=== PATIENT | female | born 1970 | race Two or more races ===

== ENCOUNTER 2024-09-22 10:16 | Emergency (ER) | payer OTHER ==
[~2024-09-22] VITALS: Ht 170.2 cm; Wt 86.6 kg
[2024-09-22] MEDS ORDERED: IRBESARTAN75 MG PO (11:17)
[2024-09-22] MEDS ORDERED: CARVEDILOL ER40 MG PO (11:17)
[2024-09-22] MEDS ORDERED: BACITRACIN-NEOMYCIN-POLYMYXIN 0.9 GM PACKET TOP ONE ×2 (11:29→11:46)
[2024-09-22] MEDS ORDERED: TETANUS & DIPHTHERIA TOX,ADULT 0.5 ML VIAL IM ONE (11:30)
[2024-09-22] MEDS ORDERED: TETANUS DIPHTHERIA TOX. ADSOR 5 ML VIAL IM ONE (11:32)
== END 2024-09-22 11:58 | disposition home or self-care (01) ==
LOC: ER 10:19
DX: S61.101A Unspecified open wound of right thumb with damage to nail, initial encounter (principal); W22.8XXA Striking against or struck by other objects, initial encounter; Y93.89 Activity, other specified; Y92.89 Other specified places as the place of occurrence of the external cause